=== PATIENT | male | born 1980 | race Caucasian/White ===

== ENCOUNTER 2017-07-30 20:00 | Emergency (ER) | payer SELFPAY ==
[~2017-07-30] VITALS: Ht 165.1 cm; Wt 99.8 kg
[2017-07-30 20:02] VITALS: BP 132/79
--- NOTE | 2017-07-30 20:10 | NUR ---
TO LOBBY , VIA W/C, A/W BED, CHRISTOPHER OLIVIA NOTED
--- NOTE | 2017-07-30 20:29 | NUR ---
PT TAKEN TO CHAIR 7 Addendum: 07/30/17 at 2030 by JEANEO PT TAKEN TO BED 7
--- NOTE | 2017-07-30 20:37 | NUR ---
37/M CAME IN W C/O 01/03 EPIGASTRIC PAIN RADIATING TO LT SHOULDER X 1700 TODAY. ABD SOFT, ROUND, +TENDERNESS TO EPIGASTRIC. REPORTS NAUSEA, DENIES V/D, FEVER/CHILLS. PMH: YIFAN Addendum: 07/30/17 at 2050 by FABIANO JAI SERRANO MADE AWARE OF PT STATUS
[2017-07-30] MEDS ORDERED: NACL 0.9% 1,000 ML IV SCH (21:32)
[2017-07-30] MEDS ORDERED: DICYCLOMINE HCL LIQUID 20 MG, ALUMINUM HYD/MAG/SIMETHICONE 30 ML, LIDOCAINE VISCOUS 2% ... PO ONE ×3 (21:35)
[2017-07-30] MEDS ORDERED: FAMOTIDINE 20 MG/2 ML VIAL IVP ONE (21:35)
[2017-07-30] MEDS ORDERED: HYDROmorphone PFS 2 MG/ML SYR IVP ONE (21:35)
[2017-07-30] MEDS ORDERED: PROCHLORPERAZINE 10 MG/2 ML VIAL IVP ONE (21:35)
[2017-07-30] MEDS ORDERED: KETOROLAC 30 MG/ML VIAL IVP ONE (21:35)
[2017-07-30] MEDS ORDERED: diphenhydrAMINE 50 MG/ML VIAL IVP ONE (21:35)
--- NOTE | 2017-07-30 21:52 | NUR ---
PT TAKEN TO CT
[2017-07-30] MEDS ORDERED: FAMOTIDINE 20 MG/2 ML VIAL ONE (21:53)
[2017-07-30 21:59] LABS: BASOPHILS % (AUTO) 0.8 % (0.0-2.0); EOSINOPHILS # (AUTO) 0.1 K/uL (0-0.4); EOSINOPHILS % (AUTO) 1.1 % (0.0-4.0); HEMATOCRIT 45.2 % (36-52); HEMOGLOBIN 15.1 g/dL (12.0-18.0); LYMPHOCYTES # (AUTO) 2.6 K/uL (2.0-11.5); MEAN CORPUSCULAR HEMOGLOBIN 30 pg (27-31); MEAN CORPUSCULAR HGB CONC 33 g/dL (33-37); MEAN CORPUSCULAR VOLUME 89.4 fL (80-94); MONOCYTES # (AUTO) 0.7 K/uL (0.8-1.0); MONOCYTES % (AUTO) 13.4 % (1.7-9.3); NEUTROPHILS # (AUTO) 2.2 K/uL (1.8-7.7); PLATELET COUNT (AUTO) 272 K/uL (140-450); RED BLOOD CELL COUNT(AUTO) 5.06 MIL/uL (4.20-6.10); RED CELL DISTRIBUTION WIDTH 13.8 % (11.6-13.7); WHITE BLOOD COUNT (AUTO) 5.6 K/uL (4.8-10.8)
--- NOTE | 2017-07-30 22:02 | NUR ---
PT RETURN FROM CT
[2017-07-30 22:10] LABS: ANION GAP 14.8 (8-16); CARBON DIOXIDE 26.7 mmol/L (21-32); CREATININE 1.1 mg/dL (0.7-1.3); POTASSIUM 3.5 mmol/L (3.5-5.1)
[2017-07-30 22:18] LABS: NEUTROPHILS % (AUTO) 38.7 % (42.2-75.2)
[2017-07-30 22:26] LABS: APPEARANCE,URINE CLEAR (CLEAR); BILIRUBIN,URINE NEGATIVE (NEGATIVE); BLOOD, URINE NEGATIVE (NEGATIVE); COLOR,URINE YELLOW (YELLOW); LEUKOCYTE ESTERASE ,URINE NEGATIVE (NEGATIVE); NITRITE, URINE NEGATIVE (NEGATIVE); PH,URINE 6.5 (5.0-9.0); UGLUCOSE NEGATIVE (NEGATIVE)
[2017-07-30 22:36] LABS: RBC,URINE 0-5 (RARE) /HPF (0-5); WBC,URINE 0-5 (RARE) /HPF (0-5)
--- NOTE | 2017-07-30 23:48 | NUR ---
Ultrasound at bedside.
[2017-07-31 00:57] VITALS: BP 102/87
--- NOTE | 2017-07-31 00:57 | NUR ---
Patient discharged with v/s stable. Written and verbal after care instructions given and explained. Patient alert, oriented and verbalized understanding of instructions. Ambulatory with steady gait. All questions addressed prior to discharge. ID band removed. Patient advised to follow up with PMD. Rx of IBUPROFEN AND NORCO given. Patient educated on indication of medication including possible reaction and side effects. Opportunity to ask questions provided and answered. IV removed, catheter intact and site benign. Applied folded 4x4 gauze and tape to stop bleeding.
== END 2017-07-31 00:57 | disposition home or self-care (01) ==
LOC: MED 20:00
DX: K80.20 Calculus of gallbladder without cholecystitis without obstruction (principal); K80.50 Calculus of bile duct without cholangitis or cholecystitis without obstruction; E78.5 Hyperlipidemia, unspecified
CPT/HCPCS: 36415; 74176; 76705; 80053; 81001; 83690; 85025; 96361; 96374; 96375; 99285; J0780; J1170; J1200; J1885; J3490; J7030; Q0092

== ENCOUNTER 2020-06-28 23:39 | Emergency (ER) | payer SELFPAY ==
[~2020-06-28] VITALS: Ht 165.1 cm; Wt 90.7 kg
--- NOTE | 2020-06-28 23:41 | NUR ---
Sveta blue in [facility] - 06/28/20 at 2350 by SRAVAN PT TAKEN TO BED 9
[2020-06-28 23:43] VITALS: BP 121/86
--- NOTE | 2020-06-28 23:57 | NUR ---
PT TAKEN TO BED 8
--- NOTE | 2020-06-29 00:18 | NUR ---
40 Y/O MALE PRESENTS TO THE ED WITH LEFT SHOULDER PAIN. PT PAIN STARTED AROUND [phone]. PT REPORTS TAKING ADVIL AND PAIN WAS UNRELIEVED. PT STATES PAIN IS A 7/10. LEFT SHOULDER NORMAL ROM. DENIES N/V/D; SKIN IS PINK/WARM/DRY; AAOX4 WITH EVEN AND STEADY GAIT; LUNGS CLEAR BL; HR EVEN AND REGULAR; PT DENIES ANY FEVER, CP, SOB, OR COUGH AT THIS TIME; VSS; PATIENT POSITIONED FOR COMFORT; HOB ELEVATED; BEDRAILS UP X2; BED DOWN. ER MD MADE AWARE OF PT STATUS. PMH: N/A ALLERGIES: NKA
[2020-06-29] MEDS ORDERED: KETOROLAC 60 MG/2 ML VIAL IM ONE (00:30)
--- NOTE | 2020-06-29 00:45 | NUR ---
Dr. Smith examining patient.
[2020-06-29] MEDS ORDERED: ACET-8386 PO (00:53)
[2020-06-29] MEDS ORDERED: IBUP-2213 PO (00:53)
[2020-06-29 00:58] VITALS: BP 121/86
--- NOTE | 2020-06-29 00:58 | NUR ---
Patient discharged with v/s stable. Written and verbal after care instructions given and explained. Patient alert, oriented and verbalized understanding of instructions. Ambulatory with steady gait. All questions addressed prior to discharge. ID band removed. Patient advised to follow up with PMD. Rx of MOTRIN AND NORCO given. Patient educated on indication of medication including possible reaction and side effects. Opportunity to ask questions provided and answered.
== END 2020-06-29 00:58 | disposition home or self-care (01) ==
LOC: MED 23:39
DX: M25.512 Pain in left shoulder (principal); X58.XXXA Exposure to other specified factors, initial encounter; Y93.89 Activity, other specified; Y92.89 Other specified places as the place of occurrence of the external cause; Y99.8 Other external cause status
CPT/HCPCS: 96372; 99283; J1885